=== PATIENT | female | born 1965 | race Two or more races ===

== ENCOUNTER 2018-02-01 08:10 | Observation (INO) | payer BC, OTHER ==
[2018-02-01] MEDS ORDERED: LR 1,000 ML IV ONE (08:24)
[2018-02-01] MEDS ORDERED: LIDOCAINE 1% 2 ML INJ ID PRN (08:24)
[2018-02-01] MEDS ORDERED: BACITRACIN ZINC 14.2 GM OINTTUBE TP ONE (08:44)
[2018-02-01] MEDS ORDERED: OXYMETAZOLINE 30 ML NASAL SPRAY ONE (08:45)
[2018-02-01] MEDS ORDERED: LIDO/EPI 1% **for epidural** 30 ML SDV ONE (08:45)
--- NOTE | 2018-02-01 10:36 | PDHPUP ---
History & Physical Update H&P update statement: This history and physical update is based on an assessment of the patient which was completed after admission or registration (within 24 hours), but prior to the surgery/procedure. H&P update: H&P reviewed & patient examined
[2018-02-01] MEDS ORDERED: OXYMETAZOLINE 30 ML NASAL SPRAY EACHNARE ONE (10:37)
[2018-02-01] MEDS ORDERED: DEXAMETHASONE 10 MG/ML VIAL IVP ONE (10:37)
[2018-02-01] MEDS ORDERED: ceFAZolin 2 GM/SWFI 2 GM/20 ML SYR IVP ONE (10:37)
[2018-02-01] MEDS ORDERED: MIDAZOLAM 2 MG/2 ML VIAL IVP ONE (10:56)
--- NOTE | 2018-02-01 10:59 | PDANEPAE ---
ANE History of Present Illness vocal cord paralylsis ANE Past Medical History - Cardiovascular History Hx Hypertension: Yes Hx Arrhythmias: No Hx Chest Pain: No Hx Coronary Artery / Peripheral Vascular Disease: No Hx CHF / Valvular Disease: No Hx Palpitations: No - Pulmonary History Hx COPD: No Hx Asthma/Reactive Airway Disease: Yes Hx Recent Upper Respiratory Infection: No Hx Oxygen in Use at Home: No Hx Sleep Apnea: No Sleep Apnea Screening Result - Last Documented: Negative Pulmonary History Comment: inhaler for allergy triggered asthma - Neurologic History Hx Cerebrovascular Accident: No Hx Seizures: No Hx Dementia: No - Endocrine History Hx Diabetes: No - Renal History Hx Renal Disorders: No - Liver History Hx Hepatic Disorders: No - Neurological & Psychiatric Hx Hx Neurological and Psychiatric Disorders: Yes Neurological / Psychiatric History Comment: anxiety and depression - Cancer History Hx Cancer: No - Congenital Disorder History Hx Congenital Disorders: No - GI History Hx Gastrointestinal Disorders: Yes Gastrointestinal History Comment: Idiopathic pancreatitis with recent hospitalization - Other Health History Other Health History: Denture uppers can be removed - Chronic Pain History Chronic Pain: Yes (RA jefe) - Surgical History Prior Surgeries: 3 chest tubes placed with hospitalization. 2 tka ANE Review of Systems Review of Systems: - Exercise capacity METS (RN): 4 METS ANE Patient History - Allergies Allergies/Adverse Reactions: No Known Allergies Allergy (Verified 01/22/18 11:17) - Home Medications Home Medications: Abilify 01/22/18 [Last Taken 02/01/18] Aspirin 81mg (*) 01/22/18 [Last Taken 01/25/18] Belsomra 01/22/18 [Last Taken 01/31/18] Fentanyl Patch 01/22/18 [Last Taken 01/31/18] Lexapro 01/22/18 [Last Taken 02/01/18] Lipitor 01/22/18 [Last Taken 02/01/18] Losartan Potassium 01/22/18 [Last Taken 01/29/18] Colton 5/325 (*) 01/22/18 [Last Taken 01/31/18] Soma 01/22/18 [Last Taken 01/31/18] Vitafusion Gummies 01/22/18 [Last Taken 01/25/18] Wellbutrin 100mg (*) 01/22/18 [Last Taken 02/01/18] Xanax 01/22/18 [Last Taken 02/01/18] - NPO status NPO Since - Liquids (Date): 02/01/18 NPO Since - Liquids (Time): 00:00 NPO Since - Solids (Date): 02/01/18 NPO Since - Solids (Time): 00:00 - Smoking Hx Smoking Status: Former smoker - Family Anes Hx Family Hx Anesthesia Complications: none ANE Labs/Vital Signs - Vital Signs Blood Pressure: 119/80 Heart Rate: 84 Respiratory Rate: 14 O2 Sat (%): 90 Height: 167.64 cm Weight: 79.379 kg ANE Physical Exam - Airway Neck exam: FROM Mallampati Score: Class 1 Mouth exam: dentures - Pulmonary Pulmonary: no respiratory distress - Cardiovascular Cardiovascular: regular rate and rhythym - ASA Status ASA Status: II ANE Anesthesia Plan Anesthesia Plan: MAC
[2018-02-01] MEDS ORDERED: fentaNYL 100 MCG/2 ML INJ ONE ×4 (11:04→12:47)
[2018-02-01] MEDS ORDERED: PROPOFOL/EMULSION 500 MG/50 ML BOTTLE IV ONE (11:05)
[2018-02-01] MEDS ORDERED: PROPOFOL 200 MG/20 ML VIAL ONE (11:05)
[2018-02-01] MEDS ORDERED: ONDANSETRON 4 MG/2 ML VIAL IVP PRN ×2 (11:23→12:26)
[2018-02-01] MEDS ORDERED: D5W LR 1,000 ML IV SCH (11:30)
[2018-02-01] MEDS ORDERED: PROMETHAZINE HCL 25 MG/ML INJ IVP PRN (12:26)
[2018-02-01] MEDS ORDERED: NALOXONE HCL 0.4 MG/ML INJ IVP PRN (12:26)
--- NOTE | 2018-02-01 12:46 | POSTANESTH ---
Post Anesthetic Evaluation Cardiovascular Status: Normal, Stable Respiratory Status: Normal, Stable Level of Consciousness/Mental Status: Can Participate in Eval Pain Control: Adequate, Prn Tx Ordered Nausea/Vomiting Control: Adequate, Prn Tx Ordered Complications Possibly Related to Anesthesia: None Noted
[2018-02-01] MEDS ORDERED: HYDROmorphONE/DILAUDID 2 MG/ML INJ ONE (12:48)
[2018-02-01] MEDS: fentaNYL 100 MCG/2 ML INJ IVP PRN ×3 (12:52→13:17)
[2018-02-01] MEDS: HYDROmorphONE/DILAUDID 2 MG/ML INJ IVP PRN ×3 (12:52→13:16)
--- NOTE | 2018-02-01 13:35 | GOP ---
[f rep st] OPERATIVE REPORT DATE OF OPERATION: 02/01/2018 SURGEON: Dean Gonzalez MD DANCING TEACHER: Emanuel Fuentes MD ANESTHESIA: IV sedation as well as local with 1% lidocaine with 1:100,000 parts of epinephrine. PREOPERATIVE DIAGNOSIS: Left vocal cord paralysis. POSTOPERATIVE DIAGNOSIS: Left vocal cord paralysis. PROCEDURE PERFORMED: Left Cabral thyroplasty. FINDINGS: Left vocal cord paralysis, significantly improved following left Cabral thyroplasty. ESTIMATED BLOOD LOSS: 15 mL. DESCRIPTION OF PROCEDURE: The patient was placed on the operating table in a supine position. Steri le prep and drape of the anterior neck was performed in the region overlying the thyroid cartilage. Infiltration of this area with 1% lidocaine with 1:100,000 parts of epinephrine was performed. In ad dition, pledgets soaked in Mariano-Synephrine mixed with lidocaine were inserted into the left-sided nose to provide anesthetic. At this point, a horizontal incision was created in a naturally occurring sk in crease overlying the thyroid cartilage. The incision extended for approximately 4 cm and was pred ominantly to the left of the midline. The incision was then carried down through the subcutaneous ti ssues and then through the platysma muscle. Flaps were then elevated superiorly and inferiorly in th e subplatysmal plane. The vertical midline of the neck was identified, and the strap musculature was reflected laterally. This exposed the thyroid cartilage and laryngeal framework. The sternothyroid muscle was then incised from the inferior aspect of the thyroid cartilage. The inferior thyroid tub ercle was identified. Using the standard measurements, the area for the planned cuts through the win haylee were obtained. Once this had been completed, the window outline was created and then cut using a small reciprocating saw. The incision was carried down through the thyroid lamina, and then once co mpleted, the window of thyroid cartilage was gently removed. The perichondrium was then dissected fr ee from the inner aspect of the thyroid cartilage. At this point, the fiberoptic endoscope was advan daisy transnasally. The larynx was thoroughly evaluated. At this point, different sizers were inserte d through the laryngeal window in order to cause adduction of the paralyzed vocal cord. Different si zers were inserted, and it was found that the largest sizer, a #10, allowed for the best adduction of the vocal cords. At this point, the sizers were withdrawn and a size 10 implant was inserted withou t difficulty. The strap muscles were reapproximated in the vertical midline of the neck using 3-0 Vi cryl sutures. The platysma was reapproximated utilizing 3-0 Vicryl sutures as well. At this point, a skin closure of interrupted 5-0 nylon sutures was placed. A sterile pressure dressing was applied. The patient was then awakened, transferred to the postanesthesia recovery area in stable condition. FLUID REPLACEMENT: 600 mL. COMPLICATIONS: None. /[id number]/MODL
--- NOTE | 2018-02-01 14:11 | POSTOPPROG ---
Post Op Note Date of Operation: 02/01/18 Surgeon: Rei Gonzalez Lining Strap Closer: Emanuel Fuentes M.D. Anesthesia: GET(General Endotracheal) Pre-op Diagnosis: left vocal cord parylasis Post-op Diagnosis: same Procedure: left pena thyroplasty Inf/Abcess present in the surg proc area at time of surgery?: No Depth: Deep Incisional (Fascial) EBL: Minimal Total fluids administered: 400 Complications: none
[2018-02-01] MEDS: DEXAMETHASONE 4 MG/ML VIAL IVP SCH ×2 (14:12→21:39)
[2018-02-01] MEDS: HYDROCOD/APAP 7.5/325 IN 15ML UDCUP PO PRN ×2 (14:15→19:47)
[2018-02-01] MEDS: HYDROmorphONE/DILAUDID 2 MG TAB PO PRN ×2 (17:00→21:39)
--- NOTE | 2018-02-01 17:31 | SOAPPROG ---
SOAP Progress Note Assessment/Plan: Assessment: Plan: 02/01/18 17:29 patient with mod pst op pain and otalgia Dressing dry and intact. Voice hoarse but significantly increased fluency No SOB or stridor Stable post op Objective: Vital Signs Temp Pulse Resp BP Pulse Ox 36.5 C 71 18 145/94 H 94 02/01/18 16:40 02/01/18 16:40 02/01/18 16:40 02/01/18 16:40 02/01/18 16:40 01/31/18 02/01/18 02/02/18 05:59 05:59 05:59 Intake Total 1170 Output Total 315 Balance 855 - Pending Discharge Pending Discharge Within 24 Hours: Yes Pending Discharge Date: 02/02/18 Pending Discharge Time: 11:00 ICD10 Worksheet Patient Problems: Problems Problem Status Onset Vocal cord dysfunction Acute - ICD10 Problem Qualifiers (1) Vocal cord dysfunction
[2018-02-01] MEDS ORDERED: ceFAZolin 2 GM/SWFI 2 GM/20 ML SYR IVP SCH (20:00)
[2018-02-02] MEDS ORDERED: ALPRAZolam 1 MG TAB PO SCH (01:00)
[2018-02-02] MEDS: HYDROmorphONE/DILAUDID 2 MG TAB PO PRN (04:18)
[2018-02-02] MEDS: DEXAMETHASONE 4 MG/ML VIAL IVP SCH (05:34)
[2018-02-02] MEDS: HYDROCOD/APAP 7.5/325 IN 15ML UDCUP PO PRN (05:39)
[2018-02-02 06:47] VITALS: BP 115/84
--- NOTE | 2018-02-02 08:30 | SOAPPROG ---
SOAP Progress Note Assessment/Plan: pt s/p thyroplasty. Doing well. Pain controlled. Voice strong. No SOB. neck- dressing removed. incison c/d/i. Plan:Pt s/p thyroplasty. doing well. Apply ointment bid. F/u next week for suture removal. 02/02/18 08:29 Objective: Vital Signs Temp Pulse Resp BP Pulse Ox 36.6 C 64 16 115/84 H 93 02/02/18 06:46 02/02/18 06:46 02/02/18 06:46 02/02/18 06:46 02/02/18 06:46 02/01/18 02/02/18 02/03/18 05:59 05:59 05:59 Intake Total 2391 Output Total 7445 Balance 64 ICD10 Worksheet Patient Problems: Problems Problem Status Onset Vocal cord dysfunction Acute
[2018-02-02] MEDS ORDERED: SUVOREXANT 10 MG PO SCH (21:00)
== END 2018-02-02 09:21 | disposition home or self-care (01) ==
LOC: FSGY 08:10 → F3E 11:23
PROVIDERS: ADMIT Otolaryngology; ATTEND Otolaryngology
PROC: 0CUV8JZ Supplement Left Vocal Cord with Synthetic Substitute, Via Natural or Artificial Opening Endoscopic (ICD-10-PCS; principal; 2018-02-01 10:00)
PROC: 0CS Mouth and Throat, Reposition (ICD-10-PCS; principal; 2018-02-01 10:00)
DX: J38.01 Paralysis of vocal cords and larynx, unilateral (principal); R49.0 Dysphonia; R13.19 Other dysphagia; I10 Essential (primary) hypertension; J45.909 Unspecified asthma, uncomplicated; M79.7 Fibromyalgia; Z96.653 Presence of artificial knee joint, bilateral; Z87.891 Personal history of nicotine dependence
CPT/HCPCS: 31599; G0378; J0690; J1100; J1170; J2250; J2270; J2405; J2704; J3010